=== PATIENT | female | born 1980 | race Caucasian/White ===

== ENCOUNTER 2019-02-25 08:59 | Inpatient (IN) | payer OTHER ==
[~2019-02-25] VITALS: Ht 152.4 cm; Wt 49.9 kg
--- NOTE | ~2019-02-25 | OP ---
[address] [address] OPERATIVE REPORT Name: MOIRAAMOS SHARMA Room: [address] IN M.R.#: [id number] Admission: 02/25/19 Attend Phys: Blaine Vogel Discharge: Date of : 80 Report #: [id number] THIS REPORT FOR: //name// CC: Blaine Yanez Saraenram DATE OF SERVICE: 02/26/2019 UROLOGY OPERATIVE NOTE POSTOPERATIVE DIAGNOSIS: Left ureteral stone. POSTOPERATIVE DIAGNOSIS: Left ureteral stone. PROCEDURE PERFORMED: Cystoscopy with left retrograde pyelogram, ureteroscopy, laser lithotripsy and stent placement. SURGEON: Angel Schwartz MD ANESTHESIA: General. ESTIMATED BLOOD LOSS: Minimal. COMPLICATIONS: None. INDICATION FOR PROCEDURE: This is a 38-year-old female who presented to the Emergency Room with acute left flank pain. She was found to have a 7 mm left proximal ureteral stone. Her options for management were discussed in detail and she has elected to proceed with cystoscopy, left retrograde pyelogram, ureteroscopy, laser lithotripsy and stent placement. The risks, benefits, and possible complications were explained in detail to the patient and her in the preoperative area. They had a chance to ask questions, which were answered to their satisfaction and they elected to proceed. DESCRIPTION OF PROCEDURE: After obtaining informed consent, the patient was taken to the operating room and placed in supine position. After adequate general anesthesia and IV antibiotics, she was prepped and aped in the dorsal lithotomy position. A 21-Kenyan cystoscope with 30-degree lens was introduced in the bladder. The bladder was systematically inspected. There were no stones, tumors or diverticula. Left retrograde pyelogram was performed using an open-ended ureteral catheter. There was a normal caliber ureter all the way up to the proximal ureter where there was a filling defect measuring about 6-7 mm consistent with her known stone. There was [id number] proximal hydronephrosis. A sensor guidewire was passed in retrograde fashion. A second wire was placed as a safety wire. An 05/01 ureteral access sheath was gently passed over one of the wires into the proximal [place] [address] OPERATIVE REPORT Name: AMOS PIZARRO DENIZ Room: [address]#: [id number] Admission: 02/25/19 Attend Phys: Blaine Vogel Discharge: Date of : 80 Report #: [id number] guidance, it passed quite easily. Flexible ureteroscopy was then carried out through the access sheath into the proximal ureter where the stone was identified, it was pushed back into the renal pelvis for easier access. Using a 200 micron holmium laser fiber at a setting of 0.8 x 8 Hz, the stone was fragmented into several smaller fragments. All the fragments were basketed using a Zero Tip nitinol basket. These were retrieved atraumatically through the access sheath. The remainder of the kidney was inspected. There was no evidence of any other stones or other abnormalities. The access sheath was removed. The ureter was inspected with removal of the ureteroscope. There was no evidence of any ureteral injury or stones within the ureter. A 4.8 x 28 cm double-J stent was passed over the wire under fluoroscopic guidance and a good coil was noted overlying the renal pelvis. A good coil was directly visualized in the bladder. The bladder was drained. Uro-Jet was applied per urethra and a B and O suppository was placed per rectum. The patient was extubated and taken to recovery room in good condition. Plan, return care to the floor. She may discharge home when stable. Follow up in 1-2 weeks with me for stent removal. By: [id number] Schwartz MD /[email or web address]
[2019-02-25 09:10] VITALS: BP 116/77
[2019-02-25 09:22] LABS: URINE BILIRUBIN NEGATIVE (Negative); URINE BLOOD 3+ (Negative); URINE CLARITY SL CLOUDY; URINE COLOR YELLOW; URINE GLUCOSE-RANDOM NEGATIVE (Negative); URINE KETONES 2+ (Negative); URINE LEUKOCYTES-REFLEX NEGATIVE (Negative); URINE NITRITE-REFLEX NEGATIVE (Negative); URINE PROTEIN 1+ (Negative); URINE SPECIFIC GRAVITY 1.025 (1.005-1.030); URINE UROBILINOGEN 0.2 E.U./dl (0.2-1.0)
[2019-02-25 09:24] LABS: HEMATOCRIT 38.2 % (37.0-47.0); HEMOGLOBIN 12.9 gm/dL (12.0-15.0); MCH 31.7 pg (26.0-34.0); MCHC 33.9 g/dL (28.0-37.0); MCV 93.7 fL (80.0-100.0); MPV 7.9 fl. (7.2-11.1); NUCLEATED RBCS 0 /100WBC; PLATELET COUNT* 315 thou/uL (150-400); RBC 4.08 mil/uL (4.20-5.00); RDW-CV 12.8 % (10.5-14.5); WBC 12.6 thou/uL (4.0-11.0)
[2019-02-25 09:28] LABS: BACTERIA-REFLEX 1-9 Few /HPF (None Seen); CASTS None Seen /LPF (None Seen); CRYSTALS None Seen /LPF (None Seen); MUCUS None Seen strn/LPF (None Seen); SQUAMOUS 4-10 Moderate /LPF (0-3); URINE RBC >20 Many /HPF (0-2); URINE WBC-REFLEX 0-5 Rare /HPF (0-5)
[2019-02-25 09:34] LABS: CALCIUM 8.4 mg/dL (8.5-10.1); CREATININE 1.1 mg/dL (0.6-1.3); POTASSIUM 3.9 mmol/L (3.5-5.1)
[2019-02-25 09:39] LABS: ALBUMIN 3.9 g/dL (3.4-5.0)
[2019-02-25 09:59] LABS: ABSOLUTE LYMPHOCYTES 1.1 thou/uL (0.8-5.3); ABSOLUTE MONOCYTES 0.1 thou/uL (0.0-1.2); ABSOLUTE NEUTROPHILS 11.3 thou/uL (1.6-8.1); PLATELET ESTIMATE ADEQUATE
[2019-02-25 10:52] VITALS: BP 109/78
[2019-02-25 11:03] VITALS: BP 106/74
--- NOTE | 2019-02-25 11:28 | NUR ---
RECEIVED REPORT FROM ED AND ASSUMED CARE OF PT @ 1939.PT IS A/O X4,VSS,MED-SURG STATUS.PT IS ON ROOM AIR.LEFT AC IV PATENT WITH IVF INFUSING PER ORDERS.PT IS CALM AND COOPERATIVE WITH NO C/O PAIN AT TIME OF ASSESSMENT.PT LEFT RESTING IN BED WITH CALL LIGHT WITHIN REACH.WILL CONTINUE TO MONITOR.
[2019-02-25 16:30] VITALS: BP 104/69
--- NOTE | 2019-02-25 17:10 | NUR ---
PAIN MANAGED WELL WITH IV PAIN MEDICATIONS.IV PATENT WITH IVF INFUSING PER ORDERS.REGULAR DIET RESUMED.PT TO BE NPO AT MIDNIGHT FOR CYSTOSCOPY IN THE AM.WILL CONTINUE TO MONITOR FOR THE DURATION OF SHIFT.
[2019-02-25 20:00] VITALS: BP 110/76
[2019-02-26 04:52] VITALS: BP 110/76
--- NOTE | 2019-02-26 06:46 | NUR ---
PT ALERT AND ORIENTED. VSS ON RA. ASSESSMENT DOCUMENTED. PT DENIES PAIN, N/V. REFUSED SCHLD TORADOL. PT SLEPT MOST OF NIGHT. NPO AFTER MN. PRE OP CHECKLIST DONE. PT LEFT FOR PRE OP AT @0635. WILL CONTINUE TO MONITOR
[2019-02-26 09:48] VITALS: BP 124/68
--- NOTE | 2019-02-26 11:45 | NUR ---
MET WITH PT TO DISCUSS DC PLAN, PT LIVES WITH SPOUSE AND PLANS TO GO HOME TODAY. DISCUSSED WITH HER THAT SHE IS OUT OF NETWORK AND GAVE INFO ON FACILITIES IN NETWORK
[2019-02-26] MEDS ORDERED: IBUPROFEN 800800 M1 PO (11:52)
[2019-02-26 12:29] VITALS: BP 124/68
[2019-02-26] MEDS ORDERED: LEVSIN0.125 MG PO (12:32)
[2019-02-26] MEDS ORDERED: NORCO 5-325 TA1 EAC1 PO (12:32)
[2019-02-26] MEDS ORDERED: PHENAZOPYRIDIN200 M2 PO (12:33)
--- NOTE | 2019-02-26 13:06 | NUR ---
ASSUMED CARE OF PT AROUND 0730 THIS AM. REFER TO ASSESSMENT. PT HAD SURGERY THIS AM AND TOLERATED WELL. PT HAS NO C/O PAIN POST OP. GIVEN PRN MEDS FOR BLADDER SPASMS THAT WAS EFFECTIVE. TOLERATED DIET. PT GIVEN DISCHARGE INSTRUCTIONS AND SCRIPTS AND VERBALIZES UNDERSTANDING. NO OTHER CONCERNS AT THIS TIME.
== END 2019-02-26 13:15 | disposition home or self-care (01) | DRG 661 ==
LOC: M.ERS 08:59 → M.TBA-ER 10:27 → M.ORTHSURG 10:27
PROVIDERS: Emergency Medicine; ADMIT Family Medicine
PROC: BT1F1ZZ Fluoroscopy of Left Kidney, Ureter and Bladder using Low Osmolar Contrast (ICD-10-PCS; principal; 2019-02-26)
PROC: 0T778DZ Dilation of Left Ureter with Intraluminal Device, Via Natural or Artificial Opening Endoscopic (ICD-10-PCS; principal; 2019-02-26)
PROC: 0TC78ZZ Extirpation of Matter from Left Ureter, Via Natural or Artificial Opening Endoscopic (ICD-10-PCS; principal; 2019-02-26)
DX: N13.2 Hydronephrosis with renal and ureteral calculous obstruction (principal); R31.29 Other microscopic hematuria